=== PATIENT | male | born 1950 | race Asian ===

== ENCOUNTER 2016-12-13 17:37 | Emergency (ER) | payer MEDICARE ==
[~2016-12-13] VITALS: Ht 167.6 cm; Wt 79.0 kg
[2016-12-13 18:34] LABS: ASPARTATE AMINO TRANSFERASE 37 U/L (15-37); BLOOD UREA NITROGEN 8 mg/dL (7-18)
[2016-12-13] MEDS ORDERED: ENALAPRIL 2.5MG TABLET PO SCH (19:00)
[2016-12-13] MEDS ORDERED: SODIUM CHLORIDE 0.9% 1,000ML IVBOLUS ONE (19:00)
[2016-12-13] MEDS ORDERED: DIPHENHYDRAMINE 50 MG/ML, 1ML IVPush ONE (19:00)
[2016-12-13] MEDS ORDERED: KETOROLAC 30 MG/1 ML IVPush ONE (19:00)
[2016-12-13] MEDS ORDERED: METOCLOPRAMIDE 5 MG/ML, 2ML IVPush ONE (19:00)
[2016-12-13] MEDS ORDERED: DIPHENHYDRAMINE 50 MG/ML, 1ML ONE (19:30)
[2016-12-13] MEDS ORDERED: KETOROLAC 30 MG/1 ML ONE (19:30)
[2016-12-13] MEDS ORDERED: METOCLOPRAMIDE 5 MG/ML, 2ML ONE (19:30)
[2016-12-13] MEDS ORDERED: ENALAPRILAT 1.25 MG/ML, 2ML ONE (19:30)
[2016-12-13 20:50] VITALS: BP 176/104
== END 2016-12-13 21:33 | disposition home or self-care (01) ==
LOC: ED 21:30
DX: I10 Essential (primary) hypertension (principal); E11.65 Type 2 diabetes mellitus with hyperglycemia; Z87.891 Personal history of nicotine dependence
CPT/HCPCS: 36415; 80053; 85025; 93005; 96374; 96375; 99285; J1200; J1885; J2765; J7030